=== PATIENT | female | born 1995 | race Caucasian/White ===

== ENCOUNTER 2016-10-28 02:27 | Inpatient (IN) | payer OTHER ==
[~2016-10-28] VITALS: Ht 160 cm; Wt 86.1 kg
[2016-10-28] MEDS ORDERED: [UNRECOGNIZED DRUG - CODE] PO (02:43)
[2016-10-28] MEDS ORDERED: LEVO1TAB57 PO (02:43)
[2016-10-28] MEDS ORDERED: VENL-193 PO (02:43)
[2016-10-28 02:57] LABS: GLUCOSE,POINT OF CARE 101 MG/DL (70-110)
[2016-10-28 02:59] LABS: BASOPHILS % (AUTO) 0.3 % (0.0-2.0); EOSINOPHILS % (AUTO) 0.3 % (1.0-6.0); HEMATOCRIT 39.6 % (36-46); HEMOGLOBIN 13.6 g/dL (12.0-16.0); LYMPHOCYTES # (AUTO) 1.8 K/uL (1.0-4.8); LYMPHOCYTES % (AUTO) 24.2 % (22.0-44.0); MEAN CORPUSCULAR HEMOGLOBIN 30.6 pg (26.0-34.0); MEAN CORPUSCULAR HGB CONC 34.3 G/dL (31.0-37.0); MEAN CORPUSCULAR VOLUME 89 fL (80-100); MONOCYTES # (AUTO) 0.5 K/uL (0.1-1.0); MONOCYTES % (AUTO) 6.7 % (2.0-9.0); NEUTROPHILS # (AUTO) 5.2 K/uL (1.8-7.7); NEUTROPHILS % (AUTO) 68.5 % (40.0-70.0); PLATELET COUNT (AUTO) 313 K/uL (150-450); RED BLOOD CELL COUNT(AUTO) 4.44 MIL/uL (4.00-5.20); RED CELL DISTRIBUTION WIDTH 13.1 % (11.5-14.5); WHITE BLOOD COUNT (AUTO) 7.6 K/uL (4.5-11.0)
[2016-10-28 03:12] LABS: ANION GAP 11 mmol/L (8-16); CALCIUM, TOTAL 9.1 mg/dL (8.8-10.5); CARBON DIOXIDE 25 mmol/L (22-29); CHLORIDE 106 mmol/L (98-107); CREATININE 0.61 mg/dL (0.60-1.30); GLOMERULAR FILTR. RATE CALC > 60 mL/min (>60); POTASSIUM 3.4 mmol/L (3.5-5.1); SODIUM SERUM 142 mmol/L (136-145); UREA NITROGEN, BLOOD 11 mg/dL (7-18)
[2016-10-28 03:22] LABS: ALANINE AMINOTRANSFERASE 27 U/L (12-78); ALBUMIN 3.5 g/dL (3.4-5.0); ASPARTATE AMINOTRANSFERASE 15 U/L (15-37); BILIRUBIN,TOTAL 0.3 mg/dL (0.1-1.0); TOTAL PROTEIN, SERUM 7.6 g/dL (6.4-8.2)
[2016-10-28 03:26] LABS: SALICYLATE 0.9 mg/dL (2.8-20.0)
[2016-10-28 03:42] LABS: ACETAMINOPHEN < 2 mcg/mL (10-30)
[2016-10-28] MEDS ORDERED: ZOLPIDEM TARTRATE 10 MG TABLET PO PRN ×2 (11:00→15:15)
[2016-10-28] MEDS ORDERED: LORazepam 2 MG TABLET PO PRN ×2 (11:00→15:15)
[2016-10-28] MEDS ORDERED: HALOPERIDOL 5 MG TABLET PO PRN ×2 (11:00→15:15)
[2016-10-28] MEDS ORDERED: VENL-67 PO (13:24)
[2016-10-28 14:44] VITALS: BP 116/72
[2016-10-28] MEDS ORDERED: POTASSIUM CHLORIDE 20 MEQ ER TABLET PO ONE (16:00)
[2016-10-28 16:42] VITALS: BP 113/65
[2016-10-29 07:07] VITALS: BP 110/76
[2016-10-29 08:08] LABS: ANION GAP 14 mmol/L (8-16); CALCIUM, TOTAL 8.7 mg/dL (8.8-10.5); CARBON DIOXIDE 24 mmol/L (22-29); CHLORIDE 103 mmol/L (98-107); CHOL/HDL RATIO 4.9 (3.9-5.7); CREATININE 0.49 mg/dL (0.60-1.30); GLOMERULAR FILTR. RATE CALC > 60 mL/min (>60); POTASSIUM 4.2 mmol/L (3.5-5.1); SODIUM SERUM 141 mmol/L (136-145); UREA NITROGEN, BLOOD 8 mg/dL (7-18)
[2016-10-29] MEDS: VENLAFAXINE HCL 75 MG ER CAPSULE PO SCH (08:11)
[2016-10-29 08:31] VITALS: BP 122/74
[2016-10-29 09:01] LABS: GLUCOSE,POINT OF CARE 144 MG/DL (70-110)
[2016-10-29 16:14] VITALS: BP 107/67
[2016-10-30 06:21] VITALS: BP 110/68
[2016-10-30] MEDS: VENLAFAXINE HCL 75 MG ER CAPSULE PO SCH (08:18)
[2016-10-30 08:39] VITALS: BP 115/61
== END 2016-10-30 12:30 | disposition home or self-care (01) | DRG 881 ==
LOC: EMS 02:29 → B3A 10:58
PROVIDERS: ADMIT Psychiatry & Neurology Child & Adolescent Psychiatry; ATTEND Psychiatry & Neurology Child & Adolescent Psychiatry
DX: F32.9 Major depressive disorder, single episode, unspecified (principal); R45.851 Suicidal ideations; T42.4X2A Poisoning by benzodiazepines, intentional self-harm, initial encounter; E87.6 Hypokalemia; F41.9 Anxiety disorder, unspecified; R73.9 Hyperglycemia, unspecified; F17.210 Nicotine dependence, cigarettes, uncomplicated; Y92.89 Other specified places as the place of occurrence of the external cause
CPT/HCPCS: 82962; 93005; 99285; G0480; G0481